=== PATIENT | male | born 1935 | race Caucasian/White ===

== ENCOUNTER 2016-09-22 12:43 | Inpatient (IN) | payer MEDICARE ==
[2016-09-22] MEDS ORDERED: ONDANSETRON 4 MG/2ML 2 ML VIAL ONE (13:07)
[2016-09-22] MEDS ORDERED: SODIUM CHLORIDE 0.9% 500 ML ONE (13:07)
[2016-09-22] MEDS ORDERED: PANTOPRAZOLE SODIUM 40 MG VIAL IV ONE (13:08)
[2016-09-22 13:18] LABS: ABSOLUTE NEUTROPHIL COUNT 7.7 K/mm3 (1.8-7.7); BASO % 0.3 % (0.2-1.0); EOS # 0.1 (0.0-0.5); EOS % 1.3 % (0.9-2.9); HEMATOCRIT 49.4 % (32.0-52.0); HEMOGLOBIN 16.5 gm/l (14.0-18.0); IMM NEUT% 0.3 % (0-1); LYMPH # 1.8 (1.0-4.8); LYMPH % 16.1 % (15-45); MEAN CELL VOLUME 98.6 fl (80.0-94.0); MEAN CORPUSCULAR HEMOGLOBIN 32.9 pg (27.0-31.0); MEAN CORPUSCULAR HGB CONC 33.4 g/dl (33.0-37.0); MEAN PLATELET VOLUME 10.4 fl (7.4-10.4); MONO # 1.4 (0.0-0.8); MONO % 12.8 % (4-12); NEUT % 69.2 % (43-75); PLATELET COUNT 206 K/mm3 (130-400); RED CELL DISTRIBUTION WIDTH 14.3 % (11.5-14.5)
[2016-09-22 13:23] LABS: INR 2.13; PROTHROMBIN TIME 23.3 SECONDS (9.3-11.4)
[2016-09-22 13:40] LABS: ALBUMIN 3.7 gm/dL (3.5-5.7); CALCIUM 9.9 mg/dL (8.6-10.3)
[2016-09-22 16:38] VITALS: BMI 33.4
[2016-09-22] MEDS ORDERED: BISACODYL 5 MG TABLET.EC PO PRN (17:03)
[2016-09-22] MEDS ORDERED: SODIUM CHLORIDE 0.9% 100 ML IV PRN (17:03)
[2016-09-22] MEDS ORDERED: BISACODYL 10 MG SUP PR PRN (17:03)
[2016-09-22] MEDS ORDERED: MENTHOL/CETYLPYRD 1 EACH LOZENGE PO PRN (17:03)
[2016-09-22] MEDS ORDERED: MAGNESIUM HYDROXIDE 30 ML UDCUP PO PRN (17:03)
[2016-09-22] MEDS ORDERED: BLISTEX LIPSTICK 1 EACH TP PRN (17:03)
[2016-09-22] MEDS ORDERED: PHYTONADIONE 10 MG/1 ML AMP IV ONE (17:03)
[2016-09-22] MEDS ORDERED: PUMP TUBING ONE (17:22)
[2016-09-22] MEDS: SODIUM CHLORIDE 0.9% 1,000 ML IV SCH (17:26)
[2016-09-22] MEDS: PANTOPRAZOLE SODIUM 40 MG VIAL IV SCH (17:26)
--- NOTE | 2016-09-22 19:12 | HP ---
NADIA PEÑA : 1935 DATE OF ADMISSION: September 22, 2016 CHIEF COMPLAINT: Hematemesis. HISTORY OF PRESENT ILLNESS: Patient is an 80-year-old male with dementia who is in close contact with his niece who is not his primary caregiver who is in contact with him daily. She has noted that her uncle was not answering his phone today, and she contacted [facility] where he resides. They checked on him and found vomit throughout his apartment and him very lethargic and not answering questions in his usual manner. EMS was called and he presented to the emergency department. In the emergency department, he was found to have melena but was otherwise hemodynamically stable, and he is being admitted to the hospital for further evaluation. Conversation with the niece who provided more detailed history as the patient said he passed out and cannot recall the last events. The niece said that she spoke with him Wednesday. He was his usual self, and he had called her and said he was vomiting and not to come over on Wednesday as they were going to watch the Super Bowl on Wednesday. The niece contacted him and he was slower answering questions. He had continued vomiting. She did not visit him and then yesterday she called to check on Nadia, and he was yet more slow to answer. He was falling asleep between questions, and he could not recall answers to questions. Then this morning he was not answering his phone, and representatives checked on him. He was found with hematemesis versus melena throughout the apartment. He has not eaten for days. REVIEW OF SYSTEMS: Per the patient. GENERAL: Denies fevers, chills. EENT: No throat pain or congestion. CARDIOVASCULAR: No chest pain or pressure. RESPIRATORY: No difficulty in breathing, cough. ABDOMEN: No abdominal pain. Nausea and vomiting. He says he has vomiting, no diarrhea. GENITOURINARY: No difficulty with urination. MUSCULOSKELETAL: No muscle aches or pains. NEUROLOGIC: No lightheadedness, no dizziness, no headaches. PAST MEDICAL HISTORY: Significant for: 1. Dementia. 2. Atrial fibrillation. 3. Chronic kidney disease stage 3. 4. Chronic systolic heart failure. He has an ejection fraction of 35%, an aortic aneurysm and mitral regurgitation. 5. Depression. 6. Essential hypertension. 7. Gout. 8. Hyperlipidemia. 9. Obstructive sleep apnea. 10. Prostate cancer. 11. Transient ischemic attack. 12. Vitamin D deficiency. MEDICATIONS: Include: 1. Allopurinol. 2. Coumadin. 3. Colace. 4. Lasix. 5. Lisinopril. 6. Lovaza. 7. Metoprolol. 8. Nitrostat. 9. Potassium chloride. 10. Pravastatin. 11. Venlafaxine. 12. Zetia. 13. Zyprexa. ALLERGIES TO MEDICATIONS: 1. ATENOLOL. 2. DESIPRAMINE. 3. DILTIAZEM. 4. DOXAZOSIN. 5. NIFEDIPINE. 6. PEANUTS. FAMILY MEDICAL HISTORY: Unknown. SOCIAL HISTORY: He lives alone with a niece who checks in on him and helps him with bills and his medications and shopping. No caffeine, alcohol use. He is a retired [employer]. PAST SURGICAL HISTORY: He has had: 1. Prostate cancer procedure. 2. Aortic and mitral valve replacements. 3. Angioplasty. 4. AICD placement. PHYSICAL EXAM: VITAL SIGNS: Temperature 99.3, heart rate is 70, blood pressure 154/85. He is saturating 97% on room air. GENERAL: He is alert and awake, slow to respond. Slight pallor. HEENT: Normocephalic, atraumatic. No tenderness to palpation. His mucous membranes are dry. His pupils are equal, round, and reactive. Extraocular muscles are intact. There is no scleral icterus or conjunctival injection or pallor. NECK: Supple. Trachea midline. CARDIOVASCULAR: There is a murmur present. It is regular, positive S1, S2. ABDOMEN: Soft, nontender, no rebound, no guarding. He has active bowel sounds. MUSCULOSKELETAL: Moving all extremities without difficulty. They are nontender. RESPIRATORY: Clear to auscultation bilaterally. No rhonchi or wheezing. LABORATORIES: White blood count of 11.2, hemoglobin 16.5, hematocrit 49.4, platelet count of 14.3. PT 23.3, INR 2.1. Sodium 142, potassium 3.6, chloride 99, carbon dioxide 33, BUN 43, creatinine of 1.9, glucose 86, total bilirubin of 1.5, troponin 0.09, BNP of 105. Hemoccult positive in the emergency room. ELECTROCARDIOGRAM: Electrocardiogram was obtained. The patient is paced with a ventricular rate of 70 beats per minute, QRS duration of 187 ms. ASSESSMENT: This is an 80-year-old male found to have melena in the emergency department on Coumadin. Per the niece, he takes his medications 30 to 50% of the time. PLAN: 1. Upper gastrointestinal bleed. Dr. Smith has been contacted. He said he will perform an esophagogastroduodenoscopy in the morning. Patient is currently hemodynamically stable. He has been provided with Protonix. We will continue with gentle IV fluid hydration to prevent a congestive heart failure exacerbation, provide vitamin K to help reverse the INR and hold his Coumadin overnight. 2. Metabolic encephalopathy complicated with dementia. Patient is not at his baseline per his niece. It is metabolic secondary to the upper gastrointestinal bleed and decreased oral intake for several days. 3. Troponin elevation. Slight elevation from patient's baseline secondary to on demand ischemia. Will monitor. 4. Acute kidney injury on top of chronic kidney disease. We will provide IV fluids and monitor closely. 5. Atrial fibrillation. Patient is paced. We will resume his anticoagulation following the procedure. 6. Chronic kidney disease stage 3 with acute kidney injury. We will monitor closely. 7. Chronic systolic congestive heart failure. Gentle fluid hydration and monitor closely. 8. Dementia. It will complicate care and determining when patient is at his mental baseline. 9. Depression. We will continue his medications. 10. Hypertension. We will continue his medications. 11. Hyperlipidemia. We will hold his medications until after the procedure. 12. Patient is a DO NOT RESUSCITATE/DO NOT INTUBATE. 13. We will have him work with physical therapy for his mobility. He currently is in a scooter due to chronic medical conditions, and we will work to get the patient back to his baseline versus a short rehabilitation stay. Cc: Rock Markham.
[2016-09-22] MEDS: METOPROLOL TARTRATE 25 MG TABLET PO SCH (20:49)
[2016-09-22] MEDS: ACETAMINOPHEN 325 MG TABLET PO PRN (20:49)
[2016-09-22] MEDS: POTASSIUM CHLORIDE 20 MEQ TAB.PRT.SR PO SCH (20:49)
[2016-09-22] MEDS: DOCUSATE SODIUM 100 MG CAPSULE PO SCH (20:49)
[2016-09-23] MEDS: SODIUM CHLORIDE 0.9% 1,000 ML IV SCH ×3 (01:32→20:16)
[2016-09-23 06:16] LABS: ABSOLUTE NEUTROPHIL COUNT 4.7 K/mm3 (1.8-7.7); BASO % 0.5 % (0.2-1.0); EOS # 0.3 (0.0-0.5); EOS % 3.9 % (0.9-2.9); HEMATOCRIT 45.2 % (32.0-52.0); IMM NEUT% 0.3 % (0-1); LYMPH # 1.6 (1.0-4.8); LYMPH % 20.6 % (15-45); MEAN CELL VOLUME 99.8 fl (80.0-94.0); MEAN CORPUSCULAR HEMOGLOBIN 33.1 pg (27.0-31.0); MEAN CORPUSCULAR HGB CONC 33.2 g/dl (33.0-37.0); MEAN PLATELET VOLUME 10.5 fl (7.4-10.4); MONO % 12.9 % (4-12); NEUT % 61.8 % (43-75); PLATELET COUNT 165 K/mm3 (130-400); RED CELL DISTRIBUTION WIDTH 14.2 % (11.5-14.5)
[2016-09-23 06:18] LABS: INR 1.36; PROTHROMBIN TIME 14.5 SECONDS (9.3-11.4)
[2016-09-23 06:20] LABS: CALCIUM 8.6 mg/dL (8.6-10.3)
[2016-09-23] MEDS ORDERED: LACTATED RINGERS 1,000 ML IV SCH (06:30)
--- NOTE | 2016-09-23 07:29 | PDOC43 ---
- Subjective Chief Complaint: hematemesis Sleeping, easily arousable, answer questions Subjective: Reports Pain Tolerable, Denies Shortness of Breath, Denies Cough, Denies Abdominal Pain, Denies Nausea, Denies Vomiting - Objective Vital Signs Temperature 98.2 F 09/23/16 03:54 Pulse Rate 70 09/23/16 03:54 Respiratory Rate 21 09/23/16 04:00 Blood Pressure 149/89 09/23/16 03:54 O2 Saturation by Pulse Oximetry 97 09/23/16 03:54 Oxygen Delivery Method Room Air Oxygen Flow Rate 0 Intake and Output 09/21/16 09/22/16 09/23/16 23:59 23:59 23:59 Intake Total 1270 1501 Output Total 225 Balance 1045 1501 General: Alert, Cooperative, Other (morbidly obese), No Acute Distress HEENT: Atraumatic, Other (mucus membranes dry), No Mucous membr. moist/pink Lungs: Clear to Auscultation Bilaterally, Normal Air Movement Cardiovascular: Regular Rate and Rhythm, Normal S1, Normal S2 Abdomen: Soft, Distention, No Rigid, No Tenderness, No Rebounding Extremities: Edema, No Cyanosis, No Tenderness Neurological: Normal Speech Psych/Mental Status: Normal Mood Laboratory 09/23/16 05:30 09/23/16 05:30 09/23/16 05:30 RBC 4.53 L MCV 99.8 H MCH 33.1 H PT 14.5 H BUN 43 H Estimated GFR 36 L Current Medications: Current meds reviewed in EMR. - Problems: Assessment/Plan (1) UGIB (upper gastrointestinal bleed) Status: Suspected Assessment/Plan: Suspected based upon history of vomiting and apartment with dark material. Could have been melanotic stool. Scheduled for EGD. Protonix. Patient has been hemodynamicaly stable (2) Metabolic encephalopathy Status: Acute Assessment/Plan: Improving. Complicated by dementia. Patient answers questions more rapidly than last night. 2nd to vomiting/melantic stool, decreased PO intake, slight increase in Crea from baseline (3) SHARAD (acute kidney injury) Status: Acute Assessment/Plan: Alight bump in Crea due to poor PO intake over past several days. IVF (4) CKD (chronic kidney disease) stage 3, GFR 30-59 ml/min Status: Chronic Assessment/Plan: slight bump in Crea, monitoring medication dosing (5) Dementia Qualifiers: Dementia type: Alzheimer's disease Alzheimer's disease onset: other onset Dementia behavioral disturbance: without behavioral disturbance Qualifier Code: (G30.8) Other Alzheimer's disease Status: Chronic Assessment/Plan: complicates medical care with history (6) Elevated troponin Status: Acute Assessment/Plan: 2nd to demand ischemia, no evidence of ACS (7) Afib Status: Chronic Assessment/Plan: Paced rhythm. INR reversed with Vitamin K. Will restart coumdain following procedure
[2016-09-23] MEDS ORDERED: WARFARIN PER PHARMACY 1 EACH DOSE PO SCH (09:00)
[2016-09-23] MEDS ORDERED: AMPICILLIN SODIUM 1 G in NS 0.9% (MINI-BAG PLUS) 50 ML IV ONE (10:00)
[2016-09-23] MEDS ORDERED: FENTANYL 100 MCG/2 ML VIAL ONE (12:13)
[2016-09-23] MEDS ORDERED: PROPOFOL 20 ML IV ONE (12:14)
[2016-09-23] MEDS: VENLAFAXINE HCL XR 150 MG CAPSULE.DR PO SCH (14:12)
[2016-09-23] MEDS: DOCUSATE SODIUM 100 MG CAPSULE PO SCH ×2 (14:12→20:37)
[2016-09-23] MEDS: POTASSIUM CHLORIDE 20 MEQ TAB.PRT.SR PO SCH ×2 (14:12→20:37)
[2016-09-23] MEDS: METOPROLOL TARTRATE 25 MG TABLET PO SCH ×2 (14:12→20:37)
[2016-09-23] MEDS: OLANZAPINE 5 MG TABLET PO SCH (14:13)
[2016-09-23] MEDS: FUROSEMIDE 40 MG TABLET PO SCH ×2 (14:13→20:38)
[2016-09-23] MEDS: SUCRALFATE 1 G/10 ML DOSE PO SCH ×2 (17:01→21:11)
[2016-09-23] MEDS: PANTOPRAZOLE SODIUM 40 MG VIAL IV SCH (17:01)
[2016-09-23 17:17] LABS: HELICOBACTER PYLORII DETECTION NEGATIVE (NEGATIVE)
[2016-09-23] MEDS: ACETAMINOPHEN 325 MG TABLET PO PRN (19:34)
[2016-09-24] MEDS: SODIUM CHLORIDE 0.9% 1,000 ML IV SCH ×4 (04:23→20:32)
[2016-09-24 05:53] LABS: HEMATOCRIT 40.7 % (32.0-52.0); HEMOGLOBIN 13.8 gm/l (14.0-18.0); MEAN CELL VOLUME 98.1 fl (80.0-94.0); MEAN CORPUSCULAR HEMOGLOBIN 33.3 pg (27.0-31.0); MEAN CORPUSCULAR HGB CONC 33.9 g/dl (33.0-37.0); RED CELL DISTRIBUTION WIDTH 13.8 % (11.5-14.5)
[2016-09-24 06:44] LABS: CALCIUM 8.3 mg/dL (8.6-10.3)
[2016-09-24] MEDS: SUCRALFATE 1 G/10 ML DOSE PO SCH ×4 (07:33→20:30)
[2016-09-24] MEDS: METOPROLOL TARTRATE 25 MG TABLET PO SCH ×2 (09:33→20:29)
[2016-09-24] MEDS: VENLAFAXINE HCL XR 150 MG CAPSULE.DR PO SCH (09:33)
[2016-09-24] MEDS: FUROSEMIDE 40 MG TABLET PO SCH ×2 (09:35→20:29)
[2016-09-24] MEDS: OLANZAPINE 5 MG TABLET PO SCH (09:35)
[2016-09-24] MEDS: DOCUSATE SODIUM 100 MG CAPSULE PO SCH ×2 (09:35→20:29)
[2016-09-24] MEDS: POTASSIUM CHLORIDE 20 MEQ TAB.PRT.SR PO SCH ×2 (09:35→20:30)
[2016-09-24] MEDS: ACETAMINOPHEN 325 MG TABLET PO PRN ×2 (10:18→16:03)
--- NOTE | 2016-09-24 10:44 | PDOC43 ---
- Subjective Chief Complaint: hematemesis RN notes pt short of breath, wheezing, pt generally not oriented. No further bleeding noted. Patient reports he is not feeling good, just "weak." Did eat breakfast. No pain complaints. - Objective Vital Signs Temperature 98 F 09/24/16 10:21 Pulse Rate 70 09/24/16 10:21 Respiratory Rate 20 09/24/16 10:21 Blood Pressure 166/80 09/24/16 10:21 O2 Saturation by Pulse Oximetry 96 09/24/16 10:21 Oxygen Delivery Method Room Air Oxygen Flow Rate 0 Vital Signs Last 12 Hours Temp Pulse Resp BP Pulse Ox 09/24/16 10:21 98 F 70 20 166/80 96 09/24/16 07:36 25 09/24/16 07:16 97.8 F 70 25 173/85 96 09/24/16 03:00 98.3 F 70 16 172/87 94 09/23/16 23:00 22 09/23/16 22:51 98 F 70 22 155/75 94 Intake and Output 09/22/16 09/23/16 09/24/16 23:59 23:59 23:59 Intake Total 1270 4148 2317 Output Total 225 1050 1425 Balance 1045 3098 892 Intake & Output 09/23/16 09/24/16 09/24/16 23:59 07:59 15:59 Intake Total 2647 2197 120 Output Total 625 600 825 Balance 2022 1597 -705 Weight 113.2 kg Intake: PO Intake 1100 800 120 IV Fluids 1147 1397 OR IV Fluid 400 Output: Void 625 600 825 Other: Number of Voids 1 General: Alert, Mild Distress (seems tired.) HEENT: Atraumatic Lungs: Other (decreased breath sounds bilat. Few wheezes bilat.) Cardiovascular: Regular Rate and Rhythm Abdomen: Soft, Normal Bowel Sounds, Mild Distention, No Tenderness Extremities: No Edema, No Tenderness Skin: Normal Color Wound: No Rash Neurological: Other (sl slow to answer.) Psych/Mental Status: Other (seems sl tired.) Laboratory 09/24/16 05:15 09/24/16 05:15 09/24/16 05:15 RBC 4.15 L MCV 98.1 H MCH 33.3 H BUN 29 H Estimated GFR 45 L Calcium 8.3 L Current Medications: Current meds reviewed in EMR. Active Medications Acetaminophen (Tylenol) 650 mg PO Q6H PRN PRN Reason: Pain or Temperature > 100.5 F Last Admin: 09/24/16 10:18 Dose: 650 mg Benzocaine/Menthol (Cepacol) 1 each PO PRN PRN PRN Reason: Sore Throat Bisacodyl (Dulcolax) 10 mg IN DAILY PRN PRN Reason: Constipation Bisacodyl (Dulcolax) 5 mg PO DAILY PRN PRN Reason: Constipation Docusate Sodium (Colace) 100 mg PO BID [facility] Last Admin: 09/24/16 09:35 Dose: 100 mg Furosemide (Lasix) 80 mg PO BID [facility] Last Admin: 09/24/16 09:35 Dose: 80 mg Sodium Chloride (Sodium Chloride 0.9%) 100 mls @ 25 mls/hr IV PRN PRN PRN Reason: Flush Sodium Chloride (Sodium Chloride 0.9%) 1,000 mls @ 125 mls/hr IV .Q8H [facility] Last Admin: 09/24/16 04:23 Dose: 125 mls/hr Magnesium Hydroxide (Milk Of Magnesia) 30 ml PO DAILY PRN PRN Reason: Constipation Metoprolol Tartrate (Lopressor) 25 mg PO BID [facility] Last Admin: 09/24/16 09:33 Dose: 25 mg Miscellaneous (Coumadin Per Pharmacy) 1 each PO PERPHARMACY [facility] Olanzapine (Zyprexa) 5 mg PO DAILY [facility] Last Admin: 09/24/16 09:35 Dose: 5 mg Pantoprazole Sodium (Protonix) 40 mg IV Q24H [facility] Last Admin: 09/23/16 17:01 Dose: 40 mg Petrolatum/Paraffin/Mineral Oil (Blistex) 1 each TP PRN PRN PRN Reason: Dry and/or chapped lips Potassium Chloride (K-Dur) 20 meq PO BID [facility] Last Admin: 09/24/16 09:35 Dose: 20 meq Sodium Chloride (Normal Saline 10ml Flush) 10 ml IV Q8HR [facility] Last Admin: 09/24/16 09:35 Dose: Not Given Sodium Chloride (Normal Saline 10ml Flush) 10 ml IV PRN PRN Sucralfate (Carafate Suspension) 1 g PO ACBEDTIME [facility] Last Admin: 09/24/16 07:33 Dose: 1 g Venlafaxine HCl (Effexor Xr) 150 mg PO DAILY [facility] Last Admin: 09/24/16 09:33 Dose: 150 mg - Problems: Assessment/Plan (1) UGIB (upper gastrointestinal bleed) Status: SuspectedAssessment/Plan: EGD 09/23/16 showed mild gastritis, duodenitis. Biopsies pending. Hb relatively stable: Laboratory Tests 09/22/16 09/23/16 09/24/16 13:00 05:30 05:15 Hgb 16.5 15.0 13.8 L Continue PPI (Protonix). Patient has been hemodynamically stable, consider Med/surg if imaging (eval wheezing, weakness) unrem. (2) SHARAD (acute kidney injury) Status: AcuteAssessment/Plan: Slight bump in Creatinine due to poor PO intake over past several days, now somewhat improved 1.9->1.5 hx c/w Stage III CKD. (3) Elevated troponin Status: AcuteAssessment/Plan: attributed to stressed of UGI bleed, no evidence of ACS; not felt to be significant. (4) Metabolic encephalopathy Status: AcuteAssessment/Plan: Improved from admit, but complicated by dementia. (5) CKD (chronic kidney disease) stage 3, GFR 30-59 ml/min Status: ChronicAssessment/Plan: Mildly above baseline on admit, now back to previous baseline. Cr 1.9->1.5 (6) Dementia Qualifiers: Dementia type: Alzheimer's disease Alzheimer's disease onset: other onset Dementia behavioral disturbance: without behavioral disturbance Qualifier Code: (G30.8) Other Alzheimer's disease Status: ChronicAssessment/ Plan: complicates medical care with history. (7) Afib Status: ChronicAssessment/Plan: Paced rhythm, controlled and stable at 70. INR reversed with Vitamin K. Will consider restart coumadin. Pt with hx HTN, CHF, (8) Wheezing Status: AcuteAssessment/Plan: Plan CXR. BNP not marycarmen elevated. Recheck troponin VTE Prophylaxis: Restarting coumadin, continue mechanical tx. Disposition: anticipate going to Med/Surg, poss this afternoon. Hope to return to [facility] in the next 1-2 days.
--- NOTE | 2016-09-24 11:37 | RAD ---
Exam: Portable chest COMPARISON: 07/11/2016, 09/19/2015 INDICATION: Wheezing and fatigue. FINDINGS: A semierect AP portable view of the chest demonstrates stable cardiomegaly. Postsurgical changes of median sternotomy, aortic valve replacement and left atrial appendage clip are again appreciated. Quadruple pacing leads/AICD are unchanged in location. There is no pulmonary edema, focal airspace disease or pleural effusion. IMPRESSION: No acute pulmonary process.
[2016-09-24 12:31] LABS: TROPONIN I 0.06 ng/ml (0.0-0.06)
[2016-09-24 12:34] LABS: CKMB ISOENZYME 3.4 ng/ml (0.6-6.3)
[2016-09-24] MEDS ORDERED: WARFARIN PER PHARMACY 1 EACH DOSE PO SCH (13:30)
[2016-09-24] MEDS ORDERED: WARFARIN SODIUM 7.5 MG TABLET PO ONE (14:00)
[2016-09-24] MEDS: PANTOPRAZOLE SODIUM 40 MG VIAL IV SCH (16:54)
[2016-09-24] MEDS ORDERED: SODIUM CHLORIDE 0.9% 1,000 ML IV SCH (21:00)
[2016-09-24] MEDS ORDERED: FUROSEMIDE 20 MG/2 ML VIAL IV ONE (23:35)
[2016-09-25] MEDS: ACETAMINOPHEN 325 MG TABLET PO PRN ×3 (01:04→20:17)
[2016-09-25 06:08] LABS: ABSOLUTE NEUTROPHIL COUNT 3.5 K/mm3 (1.8-7.7); BASO % 0.7 % (0.2-1.0); EOS # 0.3 (0.0-0.5); EOS % 5.7 % (0.9-2.9); HEMATOCRIT 40.7 % (32.0-52.0); HEMOGLOBIN 14.3 gm/l (14.0-18.0); IMM NEUT% 0.5 % (0-1); LYMPH # 1.5 (1.0-4.8); LYMPH % 24.6 % (15-45); MEAN CORPUSCULAR HEMOGLOBIN 33.7 pg (27.0-31.0); MEAN CORPUSCULAR HGB CONC 35.1 g/dl (33.0-37.0); MEAN PLATELET VOLUME 11.1 fl (7.4-10.4); MONO # 0.6 (0.0-0.8); MONO % 10.4 % (4-12); NEUT % 58.1 % (43-75); PLATELET COUNT 154 K/mm3 (130-400); RED CELL DISTRIBUTION WIDTH 13.6 % (11.5-14.5)
[2016-09-25 06:16] LABS: INR 1.02; PROTHROMBIN TIME 10.7 SECONDS (9.3-11.4)
[2016-09-25 06:22] LABS: ALB/GLOB RATIO 0.9 (>1.0); ALBUMIN 3.2 gm/dL (3.5-5.7); CALCIUM 8.5 mg/dL (8.6-10.3)
[2016-09-25] MEDS: SUCRALFATE 1 G/10 ML DOSE PO SCH ×4 (07:07→20:13)
--- NOTE | 2016-09-25 07:19 | PDOC43 ---
- Subjective Chief Complaint: hematemesis Patient had reported weakness yesterday; on discussion with daughter, he was not at his baseline. He reports not sleeping well, but is sleeping on my entry to room. He awakens normally, but tends to drift back to sleep. No chest pain, no dyspnea, no nausea , no current c/o, and reports feeling better than yesterday. - Objective Vital Signs Temperature 97 F 09/25/16 02:41 Pulse Rate 70 09/25/16 02:41 Respiratory Rate 24 09/25/16 03:00 Blood Pressure 172/104 09/25/16 02:41 O2 Saturation by Pulse Oximetry 97 09/25/16 02:41 Oxygen Delivery Method Room Air Oxygen Flow Rate 0 Vital Signs Last 12 Hours Temp Pulse Resp BP Pulse Ox 09/25/16 03:00 24 09/25/16 02:41 97 F 70 24 172/104 97 09/24/16 23:00 97.6 F 70 22 194/113 94 09/24/16 19:20 24 09/24/16 18:51 97 F 70 18 183/104 96 Intake and Output 09/23/16 09/24/16 09/25/16 23:59 23:59 23:59 Intake Total 4148 5662 600 Output Total 1050 2750 2511 Balance 3098 2912 -1911 General: Other (sleepy, but awakens normally, tends to drift off to sleep.) Lungs: Clear to Auscultation Bilaterally (fairly good air movement bilat.) Cardiovascular: Regular Rate and Rhythm Abdomen: Soft, Normal Bowel Sounds, Non-Distended Extremities: Other (SCDs), No Edema, No Tenderness Skin: Normal Color Neurological: Normal Speech Laboratory 09/25/16 05:30 09/25/16 05:30 09/25/16 09/24/16 09/24/16 05:30 11:40 05:15 RBC 4.24 L MCV 96.0 H MCH 33.7 H BUN 29 H Estimated GFR 49 L 45 L Calcium 8.5 L 8.3 L B-Natriuretic Peptide 293 H Albumin 3.2 L Albumin/Globulin Ratio 0.9 L Current Medications: Current meds reviewed in EMR. Active Medications Acetaminophen (Tylenol) 650 mg PO Q6H PRN PRN Reason: Pain or Temperature > 100.5 F Last Admin: 09/25/16 01:04 Dose: 650 mg Benzocaine/Menthol (Cepacol) 1 each PO PRN PRN PRN Reason: Sore Throat Bisacodyl (Dulcolax) 10 mg NE DAILY PRN PRN Reason: Constipation Bisacodyl (Dulcolax) 5 mg PO DAILY PRN PRN Reason: Constipation Docusate Sodium (Colace) 100 mg PO BID [facility] Last Admin: 09/24/16 20:29 Dose: 100 mg Furosemide (Lasix) 80 mg PO BID [facility] Last Admin: 09/24/16 20:29 Dose: 80 mg Sodium Chloride (Sodium Chloride 0.9%) 100 mls @ 25 mls/hr IV PRN PRN PRN Reason: Flush Magnesium Hydroxide (Milk Of Magnesia) 30 ml PO DAILY PRN PRN Reason: Constipation Metoprolol Tartrate (Lopressor) 25 mg PO BID [facility] Last Admin: 09/24/16 20:29 Dose: 25 mg Miscellaneous (Coumadin Per Pharmacy) 1 each PO PERPHARMACY [facility] Olanzapine (Zyprexa) 5 mg PO DAILY [facility] Last Admin: 09/24/16 09:35 Dose: 5 mg Pantoprazole Sodium (Protonix) 40 mg IV Q24H [facility] Last Admin: 09/24/16 16:54 Dose: 40 mg Petrolatum/Paraffin/Mineral Oil (Blistex) 1 each TP PRN PRN PRN Reason: Dry and/or chapped lips Potassium Chloride (K-Dur) 20 meq PO BID [facility] Last Admin: 09/24/16 20:30 Dose: 20 meq Sodium Chloride (Normal Saline 10ml Flush) 10 ml IV Q8HR [facility] Last Admin: 09/25/16 03:12 Dose: Not Given Sodium Chloride (Normal Saline 10ml Flush) 10 ml IV PRN PRN Last Admin: 09/24/16 23:43 Dose: 10 ml Sucralfate (Carafate Suspension) 1 g PO ACBEDTIME [facility] Last Admin: 09/24/16 20:30 Dose: 1 g Venlafaxine HCl (Effexor Xr) 150 mg PO DAILY [facility] Last Admin: 09/24/16 09:33 Dose: 150 mg - Problems: Assessment/Plan (1) UGIB (upper gastrointestinal bleed) Status: SuspectedAssessment/Plan: EGD 09/23/16 showed mild gastritis, duodenitis. Biopsies pending. Hb relatively stable, sl up to 14.3 this am. Continue PPI (Protonix). Patient has been hemodynamically stable, just hypertensive (2) SHARAD (acute kidney injury) Status: AcuteAssessment/Plan: Slight bump in Creatinine due to poor PO intake over past several days, now somewhat improved 1.9->1.4 hx c/w Stage III CKD. (3) Elevated troponin Status: AcuteAssessment/Plan: attributed to stressed of UGI bleed, no evidence of ACS; not felt to be significant. 0.09->0.06, normal CPK, CKMB. BNP mildly elevated (up slightly from 2 days ago, but not especially up over the last 5 years) (4) Metabolic encephalopathy Status: AcuteAssessment/Plan: Improved from admit, but complicated by dementia. Sleepiness - will hold Zyprexa for now. (5) CKD (chronic kidney disease) stage 3, GFR 30-59 ml/min Status: ChronicAssessment/Plan: Mildly above baseline on admit, now back to previous baseline. Cr 1.9->1.5 (6) Dementia Qualifiers: Dementia type: Alzheimer's disease Alzheimer's disease onset: other onset Dementia behavioral disturbance: without behavioral disturbance Qualifier Code: (G30.8) Other Alzheimer's disease Status: ChronicAssessment/ Plan: complicates medical care with history. (7) Afib Qualifiers: Atrial fibrillation type: chronic Qualifier Code: (I48.2) Chronic atrial fibrillation Status: ChronicAssessment/Plan: Paced rhythm, controlled and stable at 70. INR reversed with Vitamin K. Will consider restart coumadin. Pt with hx HTN, CHF, (8) Wheezing Status: ResolvedAssessment/Plan: CXR was unremarkable; wheezing appears better this am. Recheck troponin was ok. (9) Hypertension Qualifiers: Hypertension type: essential hypertension Qualifier Code: (I10) Essential (primary) hypertension Status: AcuteAssessment/Plan: BP edging up last 24h. Did get extra lasix yesterday pm. Plan norvasc 2.5 mg this am. VTE Prophylaxis: Restarting coumadin, continue mechanical tx. Disposition: anticipate going to Med/Surg, Hope to return to [facility] in the next 1-2 days. Appreciate PT/OT input.
[2016-09-25] MEDS: POTASSIUM CHLORIDE 20 MEQ TAB.PRT.SR PO SCH ×2 (09:07→20:13)
[2016-09-25] MEDS: VENLAFAXINE HCL XR 150 MG CAPSULE.DR PO SCH (09:07)
[2016-09-25] MEDS: DOCUSATE SODIUM 100 MG CAPSULE PO SCH ×2 (09:07→20:12)
[2016-09-25] MEDS: FUROSEMIDE 40 MG TABLET PO SCH ×2 (09:08→20:13)
[2016-09-25] MEDS: AMLODIPINE BESYLATE 5 MG TABLET PO SCH (09:08)
[2016-09-25] MEDS: METOPROLOL TARTRATE 25 MG TABLET PO SCH ×2 (09:08→20:13)
--- NOTE | 2016-09-25 10:31 | SURGPATH ---
[facility] [address] [place] [id number] Patient Name: NADIA PEÑA MR#: [id number] : 1935 Gender: M Specimen #: [id number] Collected: 09/22/2016 Received: 09/24/2016 Reported: 09/25/2016 Submitting Phys: LAZARO KELLER Copy To Phys: STEVEN BOWSER JAMEY L [facility] Clinical History / Pre-Operative Diagnosis: GI BLEED Specimen Source / Surgical Procedure Performed: ANTRAL BIOPSY Interpretation: GASTRIC ANTRUM, BIOPSY: - NO PATHOLOGIC DIAGNOSIS Electronically Signed Out Mendez Crespo M.D. Gross Description: The specimen is received in a formalin filled container labeled with the patient's name and "antral biopsy". A single holley biopsy is 0.4 cm. Totally embedded in one cassette. [address] Microscopic Description: Levels reveal gastric mucosa with an unremarkable architecture and few chronic inflammatory cells in the lamina propria. Ulceration, acute inflammation, intestinal metaplasia, Helicobacter organisms, dysplasia and malignancy are not present. 1: [id number] K29.01
[2016-09-25] MEDS ORDERED: WARFARIN SODIUM 5 MG TABLET PO ONE (16:00)
[2016-09-25] MEDS: PANTOPRAZOLE SODIUM 40 MG VIAL IV SCH (16:16)
[2016-09-26 05:40] LABS: ABSOLUTE NEUTROPHIL COUNT 3.7 K/mm3 (1.8-7.7); BASO % 0.5 % (0.2-1.0); EOS # 0.4 (0.0-0.5); EOS % 5.8 % (0.9-2.9); HEMATOCRIT 45.3 % (32.0-52.0); HEMOGLOBIN 15.4 gm/l (14.0-18.0); IMM NEUT # 0.1 K/mm3 (0-0.2); LYMPH # 1.3 (1.0-4.8); LYMPH % 21.4 % (15-45); MEAN CELL VOLUME 96.4 fl (80.0-94.0); MEAN CORPUSCULAR HEMOGLOBIN 32.8 pg (27.0-31.0); MEAN PLATELET VOLUME 9.9 fl (7.4-10.4); MONO # 0.8 (0.0-0.8); MONO % 12.3 % (4-12); PLATELET COUNT 185 K/mm3 (130-400); RED CELL DISTRIBUTION WIDTH 13.6 % (11.5-14.5)
[2016-09-26 05:50] LABS: INR 1.09; PROTHROMBIN TIME 11.6 SECONDS (9.3-11.4)
[2016-09-26 05:58] LABS: ALB/GLOB RATIO 0.9 (>1.0); ALBUMIN 3.4 gm/dL (3.5-5.7); CALCIUM 8.9 mg/dL (8.6-10.3)
[2016-09-26] MEDS ORDERED: POTASSIUM CHLORIDE 20 MEQ TAB.PRT.SR PO SCH (07:34)
[2016-09-26] MEDS: FUROSEMIDE 40 MG TABLET PO SCH (09:41)
[2016-09-26] MEDS: METOPROLOL TARTRATE 25 MG TABLET PO SCH (09:41)
[2016-09-26] MEDS: SUCRALFATE 1 G/10 ML DOSE PO SCH (09:41)
[2016-09-26] MEDS: DOCUSATE SODIUM 100 MG CAPSULE PO SCH (09:41)
[2016-09-26] MEDS: VENLAFAXINE HCL XR 150 MG CAPSULE.DR PO SCH (09:42)
[2016-09-26] MEDS: AMLODIPINE BESYLATE 5 MG TABLET PO SCH (09:42)
[2016-09-26 09:56] VITALS: BP 174/100
--- NOTE | 2016-09-26 10:37 | PDOC43 ---
- Subjective Chief Complaint: hematemesis Patient reported to be more alert today, conversant, seeming closer to baseline. Seems to know where he is, but still demented, doing well. Anticipated going to [facility] today. Seems to do ok with therapy. Zyprexa was held yesterday. Patient reports feeling pretty good. "Needs a shave." No c/o, ate breakfast well today. Niece reports pt much more alert, awake. - Objective Vital Signs Temperature 97.9 F 09/26/16 08:00 Pulse Rate 72 09/26/16 08:00 Respiratory Rate 20 09/26/16 08:00 Blood Pressure 174/100 09/26/16 08:00 O2 Saturation by Pulse Oximetry 96 09/26/16 08:00 Oxygen Delivery Method Room Air Oxygen Flow Rate 0 Vital Signs Last 12 Hours Temp Pulse Resp BP Pulse Ox 09/26/16 08:00 97.9 F 72 20 174/100 96 09/26/16 00:52 18 09/26/16 00:47 97.1 F 70 18 173/95 93 Intake and Output 09/24/16 09/25/16 09/26/16 23:59 23:59 23:59 Intake Total 5662 1870 300 Output Total 2750 8551 850 Balance 2354 -7463 -999 General: Alert, Cooperative, No Acute Distress HEENT: Atraumatic Lungs: Clear to Auscultation Bilaterally Cardiovascular: Regular Rate and Rhythm Abdomen: Soft, Normal Bowel Sounds, Non-Distended, No Tenderness, No Rebounding , No Involuntary Guarding Extremities: No Edema, No Tenderness Skin: Normal Color Neurological: Normal Speech, Other (demented) Psych/Mental Status: Normal Affect, Normal Mood Laboratory 09/26/16 05:20 09/26/16 05:20 09/26/16 05:20 MCV 96.4 H MCH 32.8 H PT 11.6 H Estimated GFR 53 L Albumin 3.4 L Globulin 3.7 H Albumin/Globulin Ratio 0.9 L Current Medications: Current meds reviewed in EMR. Active Medications Acetaminophen (Tylenol) 650 mg PO Q6H PRN PRN Reason: Pain or Temperature > 100.5 F Last Admin: 09/25/16 20:17 Dose: 650 mg Amlodipine Besylate ([facility]) [facility] [place] Last Admin: 09/26/16 09:42 Dose: 2.5 mg Benzocaine/Menthol (Cepacol) 1 each PO PRN PRN PRN Reason: Sore Throat Bisacodyl (Dulcolax) 10 mg AR DAILY PRN PRN Reason: Constipation Bisacodyl (Dulcolax) 5 mg PO DAILY PRN PRN Reason: Constipation Docusate Sodium (Colace) 100 mg PO BID [facility] Last Admin: 09/26/16 09:41 Dose: 100 mg Furosemide (Lasix) 80 mg PO BID [facility] Last Admin: 09/26/16 09:41 Dose: 80 mg Sodium Chloride (Sodium Chloride 0.9%) 100 mls @ 25 mls/hr IV PRN PRN PRN Reason: Flush Magnesium Hydroxide (Milk Of Magnesia) 30 ml PO DAILY PRN PRN Reason: Constipation Last Admin: 09/25/16 09:13 Dose: 30 ml Metoprolol Tartrate (Lopressor) 25 mg PO BID [facility] Last Admin: 09/26/16 09:41 Dose: 25 mg Miscellaneous (Coumadin Per Pharmacy) 1 each PO PERPHARMACY [facility] Olanzapine (Zyprexa) 5 mg PO DAILY [facility] Last Admin: 09/24/16 09:35 Dose: 5 mg Pantoprazole Sodium (Protonix) 40 mg IV Q24H [facility] Last Admin: 09/25/16 16:16 Dose: 40 mg Petrolatum/Paraffin/Mineral Oil (Blistex) 1 each TP PRN PRN PRN Reason: Dry and/or chapped lips Potassium Chloride (K-Dur) 40 meq PO BID [facility] Last Admin: 09/26/16 09:41 Dose: 40 meq Sodium Chloride (Normal Saline 10ml Flush) 10 ml IV Q8HR [facility] Last Admin: 09/26/16 09:41 Dose: 10 ml Sodium Chloride (Normal Saline 10ml Flush) 10 ml IV PRN PRN Last Admin: 09/25/16 20:11 Dose: 10 ml Sucralfate (Carafate Suspension) 1 g PO ACBEDTIME [facility] Last Admin: 09/26/16 09:41 Dose: 1 g Venlafaxine HCl (Effexor Xr) 150 mg PO DAILY [facility] Last Admin: 09/26/16 09:42 Dose: 150 mg - Problems: Assessment/Plan (1) UGIB (upper gastrointestinal bleed) Status: SuspectedAssessment/Plan: EGD 09/23/16 showed mild gastritis, duodenitis. Biopsies pending. Hb relatively stable, sl up to 15.4 this am. Continue PPI (Protonix). Patient has been hemodynamically stable, is hypertensive . (2) SHARAD (acute kidney injury) Status: AcuteAssessment/Plan: Slight bump in Creatinine due to poor PO intake over past several days, now somewhat improved 1.9->1.3 hx c/w Stage III CKD. (3) Elevated troponin Status: AcuteAssessment/Plan: attributed to stressed of UGI bleed, no evidence of ACS; not felt to be significant. 0.09->0.06, normal CPK, CKMB. BNP mildly elevated (up slightly from 2 days ago, but not especially up over the last 5 years) (4) Metabolic encephalopathy Status: AcuteAssessment/Plan: Improved from admit, but complicated by dementia. Sleepiness today improved; did sleep well, now awake - holding Zyprexa (5) CKD (chronic kidney disease) stage 3, GFR 30-59 ml/min Status: ChronicAssessment/Plan: Mildly above baseline on admit, now back to previous baseline. Cr 1.9->1.3 (6) Dementia Qualifiers: Dementia type: Alzheimer's disease Alzheimer's disease onset: other onset Dementia behavioral disturbance: without behavioral disturbance Qualifier Code: (G30.8) Other Alzheimer's disease Status: ChronicAssessment/ Plan: complicates medical care with history. Doing well this am. (7) Afib Qualifiers: Atrial fibrillation type: chronic Qualifier Code: (I48.2) Chronic atrial fibrillation Status: ChronicAssessment/Plan: Paced rhythm, controlled and stable at 70. INR reversed with Vitamin K. Will consider restart coumadin. Pt with hx HTN, CHF, (8) Wheezing Status: ResolvedAssessment/Plan: CXR was unremarkable; wheezing appears resolved; did get Lasix Recheck troponin was ok. (9) Hypertension Qualifiers: Hypertension type: essential hypertension Qualifier Code: (I10) Essential (primary) hypertension Status: AcuteAssessment/Plan: BP sl improved this am, still above goal. Added norvasc 2.5 mg, will continue VTE Prophylaxis: Restarting coumadin, continue mechanical tx. Disposition: anticipate going to SNF today; review with CM, and discussed with CM. Appreciate PT/OT input.
--- NOTE | 2016-09-26 12:05 | DS ---
NADIA PEÑA [id number] DISCHARGE DIAGNOSES: Are: 1. Hematemesis. Suspected upper gastrointestinal bleed now resolved. 2. Acute on chronic kidney injury now resolved with creatinine 1.3 at discharge. 3. Minimally elevated not felt to be significant. 4. Encephalopathy, suspect related to illness, acute kidney injury and possible effect from Zyprexa medication. 5. Dementia, Alzheimer's type. 6. Atrial fibrillation, paced and restarting Coumadin. 7. Hypertension. CODE STATUS: DO NOT RESUSCITATE/DO NOT INTUBATE. REASON FOR ADMISSION: The patient is an 80-year-old male who has had dementia who had been less responsive and not answering a phone after a period of not taking his medicines on a regular basis. She contacted [facility] where he resides. They checked on him and found vomit throughout his apartment and found him lethargic and not answering questions. EMS was called and in the emergency department he was found to have melena, otherwise hemodynamically stable. He was referred to the hospitalist service for further evaluation. His lab on admission showed a white count of 11.2, hemoglobin 16.5, MCV of 98.6, platelets 206. INR 2.13. Chemistry profile showed sodium 142, potassium 3.6, BUN 43, creatinine 1.9, BNP 105, troponin 0.09. He was referred to the hospitalist service and placed in the intermediate care unit on telemetry. His hemoglobin remained relatively stable with a drop to a afia of 13.8 on September 24, 2016. He underwent endoscopy, esophagogastroduodenoscopy with biopsy with anesthesia which pathology showed no pathologic diagnosis of gastric antrum. No masses or significant ulcerations were noted. The patient was placed on sucralfate and Protonix, and remained stable with a hemoglobin improving to 15.4 by September 26, 2016. His INR trended downward because of vitamin K administration and reached a low of 1.02 on September 25, 2016. His chemistry profile showed a good improvement in renal status with a BUN of 19 and a creatinine 1.3 by September 26, 2016. He did have some hypokalemia attributed to the Lasix for which he received additional potassium. His BNP trended upward somewhat from 105 on admission to 293 and at one point some wheezing was noted, but this resolved. He continued to have some degree of sedation and so his Zyprexa was held, and he appeared to have good response to this with good improvement in alertness and function. On September 26, 2016, he is anticipated to be discharged to [facility] for further rehabilitation care. DISCHARGE MEDICATIONS: Are anticipated to be: 1. Allopurinol 150 mg daily. 2. Amlodipine 2.5 mg daily. 3. Docusate 100 mg orally twice daily. 4. Zetia 10 mg orally daily. 5. Lasix 80 mg orally twice daily. 6. Metoprolol 25 mg orally twice daily. 7. Lovaza 2 gr orally twice daily. 8. Omeprazole 20 mg orally daily. 9. Potassium chloride 40 mEq orally twice daily. 10. Pravastatin 40 mg orally daily. 11. Sucralfate 1 gr orally at meals and at bedtime. 12. Venlafaxine 150 mg orally daily. 13. Warfarin 5 mg Wednesday, Wednesday, Wednesday, Wednesday, Wednesday and Wednesday and 7.5 mg on . He is to have his next INR checked on September 28, 2016. FOLLOWUP: He is to follow up with Dr. Virkam Hernandez. DIET: Cardiac diet as tolerated. ACTIVITY: Will be as tolerated. Cc: Vikram Hernandez M.D.
== END 2016-09-26 12:50 | DRG 377 ==
LOC: ED 12:43 → ICU 14:39
PROVIDERS: ADMIT Family Medicine; ATTEND Family Medicine
PROC: 0DB78ZX Excision of Stomach, Pylorus, Via Natural or Artificial Opening Endoscopic, Diagnostic (ICD-10-PCS; principal; 2016-09-23)
DX: K29.81 Duodenitis with bleeding (principal); G93.41 Metabolic encephalopathy; I13.0 Hypertensive heart and chronic kidney disease with heart failure and stage 1 through stage 4 chronic kidney disease, or unspecified chronic kidney disease; I50.22 Chronic systolic (congestive) heart failure; N17.9 Acute kidney failure, unspecified; K92.2 Gastrointestinal hemorrhage, unspecified; I48.91 Unspecified atrial fibrillation; N18.3 Chronic kidney disease, stage 3 (moderate); F32.9 Major depressive disorder, single episode, unspecified; M10.9 Gout, unspecified; E78.5 Hyperlipidemia, unspecified; G47.33 Obstructive sleep apnea (adult) (pediatric); Z79.01 Long term (current) use of anticoagulants; Z91.14 Patient's other noncompliance with medication regimen; Z66 Do not resuscitate; G30.9 Alzheimer's disease, unspecified; F02.80 Dementia in other diseases classified elsewhere, unspecified severity, without behavioral disturbance, psychotic disturbance, mood disturbance, and anxiety; D64.9 Anemia, unspecified

== ENCOUNTER 2016-10-31 10:38 | Inpatient (IN) | payer MEDICARE ==
[2016-10-31 11:26] LABS: TROPONIN I 0.03 ng/ml (0.0-0.06)
[2016-10-31] MEDS ORDERED: FUROSEMIDE 40 MG/4 ML VIAL ONE (11:27)
[2016-10-31 11:30] LABS: CKMB ISOENZYME 2.6 ng/ml (0.6-6.3)
[2016-10-31 11:41] LABS: ALB/GLOB RATIO 0.7 (>1.0); ALBUMIN 2.9 gm/dL (3.5-5.7); CALCIUM 8.9 mg/dL (8.6-10.3)
[2016-10-31 11:56] LABS: ABSOLUTE NEUTROPHIL COUNT 9.4 K/mm3 (1.8-7.7); BASO % 0.2 % (0.2-1.0); EOS # 0.1 (0.0-0.5); EOS % 0.4 % (0.9-2.9); HEMATOCRIT 45.4 % (32.0-52.0); HEMOGLOBIN 14.8 gm/l (14.0-18.0); IMM NEUT% 0.3 % (0-1); LYMPH # 1.3 (1.0-4.8); LYMPH % 10.9 % (15-45); MEAN CELL VOLUME 97.6 fl (80.0-94.0); MEAN CORPUSCULAR HEMOGLOBIN 31.8 pg (27.0-31.0); MEAN CORPUSCULAR HGB CONC 32.6 g/dl (33.0-37.0); MEAN PLATELET VOLUME 10.2 fl (7.4-10.4); MONO # 1.4 (0.0-0.8); MONO % 11.5 % (4-12); NEUT % 76.7 % (43-75); PLATELET COUNT 359 K/mm3 (130-400); RED CELL DISTRIBUTION WIDTH 13.5 % (11.5-14.5)
--- NOTE | 2016-10-31 12:01 | RAD ---
Exam: Portable chest COMPARISON: 09/24/2016, 07/11/2016 INDICATION: Cough and shortness of breath. Findings: A semierect AP portable view of the chest again demonstrates postsurgical changes of median sternotomy and valve replacement. Left atrial appendage clip is again noted. Quadruple lead pacer/AICD remains. Lung volumes are low, preventing evaluation lung bases and portions of the cardiac silhouette. There is new right basilar opacity, with somewhat angulated margins. Lung martinez are otherwise clear and symmetric. No pleural effusion. Degenerative changes are noted about the left shoulder. IMPRESSION: New right basilar opacity, with atelectasis favored over pneumonia given it's shape.
[2016-10-31 12:03] LABS: SPECIFIC GRAVITY 1.015 (1.001-1.030); URINE APPEARANCE CLEAR; URINE BILIRUBIN NEGATIVE (NEGATIVE); URINE BLOOD TRACE (NEGATIVE); URINE COLOR DARK YELLOW; URINE GLUCOSE (UA) NEGATIVE (NEGATIVE); URINE LEUKOCYTE ESTERASE NEGATIVE (NEGATIVE); URINE NITRITE NEGATIVE (NEGATIVE); URINE PROTEIN TRACE (NEGATIVE); URINE UROBILINOGEN 1 mg/dL (0-1 mg/dl)
[2016-10-31 12:24] LABS: URINE BACTERIA 1+; URINE EPITHELIAL CELLS 0-1 /hpf; URINE RBC 0 /hpf; URINE WBC NEG /hpf
[2016-10-31 12:29] LABS: PROTHROMBIN TIME 127.3 SECONDS (9.3-11.4)
[2016-10-31 12:31] LABS: INR > 10.00
[2016-10-31] MEDS ORDERED: CEFTRIAXONE 1 GRAM DUPLEX 50 ML IV ONE (12:56)
[2016-10-31] MEDS ORDERED: PHYTONADIONE ADULT PO ONE ×2 (13:00)
[2016-10-31] MEDS ORDERED: SUCROSE PO ONE ×2 (13:00)
[2016-10-31] MEDS ORDERED: ACETAMINOPHEN 325 MG TABLET ONE (13:40)
[2016-10-31] MEDS ORDERED: MAGNESIUM HYDROXIDE 30 ML UDCUP PO PRN (14:16)
[2016-10-31] MEDS ORDERED: BLISTEX LIPSTICK 1 EACH TP PRN (14:16)
[2016-10-31] MEDS ORDERED: BISACODYL 10 MG SUP PR PRN (14:16)
[2016-10-31] MEDS ORDERED: BISACODYL 5 MG TABLET.EC PO PRN (14:16)
[2016-10-31] MEDS ORDERED: ALBUTEROL NEB 2.5 MG/3 ML VIAL.NEB NEB PRN (14:16)
[2016-10-31] MEDS ORDERED: SODIUM CHLORIDE 0.9% 100 ML IV PRN (14:16)
[2016-10-31] MEDS ORDERED: MENTHOL/CETYLPYRD 1 EACH LOZENGE PO PRN (14:16)
[2016-10-31] MEDS ORDERED: PUMP TUBING ONE (15:06)
[2016-10-31] MEDS: AZITHROMYCIN 500 MG in SODIUM CHLORIDE 0.9% 250 ML IV SCH (16:00)
[2016-10-31 18:01] VITALS: BMI 32.3
[2016-10-31] MEDS: FUROSEMIDE 40 MG TABLET PO SCH (19:22)
--- NOTE | 2016-10-31 20:07 | HP ---
NADIA PEÑA [id number] CHIEF COMPLAINT: Dyspnea. HISTORY OF PRESENT ILLNESS: The patient is an 81-year-old male with moderate to severe senile dementia, as well as chronic systolic heart failure, brought to the [facility] Emergency Department by ambulance at the recommendations of his caregivers at [facility]. Workup in the emergency department showed evidence of a right basilar pneumonia. He had borderline hypoxia, with oxygen saturations as low as 90% on room air as measured by the paramedics. There were also some concerns regarding possible congestive heart failure. The patient is a very poor historian. He reports a six month history of fatigue and cough for the past week, and is unable to give much more detail. He has not had any increased lower extremity edema. He denies any chest pain. REVIEW OF SYSTEMS: Significant for low-grade fever in the emergency department. No upper respiratory symptoms. No chest pains or palpitations. No orthopnea or lower extremity edema. No nausea or vomiting. No diarrhea or constipation. No abdominal pain. No headaches, fainting, blackouts or seizures. No urinary complaints. No history of any falls. Review of systems is otherwise negative. PAST MEDICAL HISTORY: Significant for: 1. A hospitalization last month for hematemesis. He underwent an upper endoscopy, showing some mild gastritis. He remains anticoagulated on Coumadin despite that episode. 2. Following his hospitalization in September he went to rehab at [facility] and then from there went to [facility]. His niece reports he has had a significant decline in his memory in the last six months. It is clear he is no longer able to manage his own medications. He tends to be very sedentary. He does not self-motivate to ambulate or transfer without a lot of encouragement. He has a walker and a motorized scooter. He has been getting outpatient physical therapy. 3. He has a history of chronic systolic congestive heart failure, followed by [facility]. His last ejection fraction was 30% by echocardiography in February of 2015. 4. 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 5. He has had nonischemic cardiomyopathy. 6. He has had a history of dyslipidemia and chronic essential hypertension. 7. He has had gout. 8. He has had a history of obstructive sleep apnea, but his niece reports he has been off of CPAP since July. His mask does not fit and it may be broken, and he needs a new water chamber. She thought the patient would arrange to get this on his own, but he has not done anything and does not seem capable of doing anything to get the new equipment. She reports that he had a sleep study through Dr. Trisha Vergara with [facility] and his equipment is from [employer]. 9. He has had a history of chronic Stage-3 kidney disease. 10. He has had some mild glucose intolerance. 11. He has had chronic atrial fibrillation, anticoagulated on Coumadin long-term. 12. He has a remote history of prostate cancer. 13. He has had TIAs in the past. PAST SURGICAL HISTORY: Significant for: 1. Surgery for prostate cancer. His prostatectomy was in 1995. 2. He had a screening colonoscopy in October of 2006. 3. He has had a hernia repair, details are not available. 4. He had a cardiac catheterization in 2009, showing global hypokinesis and nonocclusive coronary artery disease. 5. He had reconstruction of his ascending aorta in March of 2010, along with tissue aortic valve replacement and a tissue mitral valve replacement. He had a MAZE procedure at the same time in March of 2010. 6. He had an AV deisi ablation in June of 2010 and had an electronic ventricular pacemaker placed at the same time. He had the leads replaced and generator replaced in October of 2015. 7. He had a biventricular ICD device placed in August of 2010. ALLERGIES: His record in his primary care provider's office indicates allergy or intolerance to: 1. Atenolol. 2. Desipramine. 3. Diltiazem. 4. Doxazosin. 5. Nifedipine. 6. Peanuts. CURRENT MEDICATIONS: Include: 1. Coumadin 5 mg by mouth on Wednesday, Wednesday, Wednesday, Wednesday and Wednesday and 7.5 mg by mouth on Wednesday and . 2. Effexor ER 150 mg by mouth daily. 3. Carafate suspension 1 gram before meals and at bedtime. 4. Pravachol 40 mg at bedtime. 5. Potassium chloride 40 mEq by mouth twice a day. 6. Prilosec 20 mg by mouth daily. 7. Lovaza 1 gram capsules, two capsules twice daily. 8. Lopressor 50 mg twice daily. 9. Cozaar 25 mg daily. 10. Lasix 80 mg twice daily. 11. Zetia 10 mg daily. 12. Colace 100 mg twice a day. 13. Amlodipine 2.5 mg daily. 14. Allopurinol 150 mg daily. 15. Tylenol 650 mg every four hours as needed for pain or fever. FAMILY HISTORY: Significant for a mother who of complications of kidney disease and a father who of a myocardial infarction in his 80's. SOCIAL HISTORY: He was living alone until this year when he moved into the [facility] area about a week ago. He has a niece who is the main family member involved in his life and is his primary spokesperson, Cate Jason. There is no history of alcohol, drug use or tobacco use. 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 He has no children. PHYSICAL EXAMINATION: VITAL SIGNS: Temperature 97.8. Pulse 70. Blood pressure 135/94. Respirations 20. Oxygen saturations are 94% on 2 liters by nasal cannula. GENERAL: This is an obese elderly male in no acute distress. HEENT: Shows moist pink oral mucosa. NECK: Supple, without lymphadenopathy, thyromegaly or jugular venous distention. LUNGS: His lung sounds are diminished in the bases, with some rhonchi on the right. CARDIOVASCULAR: Reveals a regular rate and rhythm, without a murmur. ABDOMEN: Obese, soft, nontender and nondistended, with positive bowel sounds. EXTREMITIES: Show no peripheral edema. SKIN: Warm, dry and intact. LABORATORY STUDIES: CBC is elevated at 12.2, hemoglobin is 14.8 and platelet count is 359,000. Differential shows increased neutrophils. INR is markedly elevated at greater than 10. Lactate is 1.1. Chemistry profile shows a sodium of 138, potassium 3.6, carbon dioxide 24, BUN of 31, creatinine 1.2 and glucose 130. Total bilirubin is 1.4. AST is 45 and ALT is 47. CPK is 29, with a CK-MB of 2.6. Troponin is 0.03. B-type natriuretic peptide is slightly elevated at 407. Urinalysis is unremarkable. EKG: A 12-lead EKG shows a paced rhythm. No ischemic change. IMAGING: A chest x-ray shows a right basilar infiltrate. ASSESSMENT: 1. Patient has a community-acquired bacterial pneumonia. He will be treated with Rocephin and Zithromax. 2. He has generalized weakness, which has been chronic and multifactorial. 3. He has chronic systolic congestive heart failure and chronic atrial fibrillation. He is anticoagulated on Coumadin and his INR is critical, greater than 10. 4. He has obstructive sleep apnea and is usually on CPAP, but has been unable to get his equipment replaced. 5. He has chronic Stage-3 kidney disease which is stable, with a baseline creatinine around 1.4, currently at 1.2. 6. He has chronic essential hypertension, which is stable. 7. He has senile dementia, which is progressing fairly rapidly. PLAN: He is admitted to the Med-Surg unit with antibiotic treatment consisting of Rocephin and Zithromax. He got a dose of vitamin K in the emergency department. I discussed with his niece the pros and cons of continued anticoagulation, quoting a 6% risk of stroke per year off Coumadin versus a 3% risk per year on Coumadin, and she elects to take the patient off Coumadin as his patient advocate. I tend to agree, given how severe his dementia is and his poor quality of life at this point, so we will stop his Coumadin and replace it with aspirin daily once his INR is under 2. He has obstructive sleep apnea. He is not able to advocate for his own equipment and if he is here on Wednesday I am going to see if we can contact [facility] and get his equipment replaced. He has senile dementia as I mentioned above, which may limit his ability to participate in physical therapy, but his niece would like to try pursuing readmission at [facility] for rehab if he qualifies. We will get PT and OT to evaluate and treat the patient and care management's assistance in placement. Further treatment and recommendations will depend on his hospital course. VTE risk is moderate and he is excessively anticoagulated on Coumadin at this point. When his INR is under 2, we will consider Lovenox therapy. CODE STATUS: I did review the patient's POLST form and his code status is do not resuscitate/do not intubate, with limited additional interventions. cc: Dr. Vikram Hernandez
[2016-10-31] MEDS ORDERED: FUROSEMIDE 40 MG TABLET PO SCH (21:00)
[2016-10-31] MEDS: METOPROLOL TARTRATE 25 MG TABLET PO SCH (21:33)
[2016-10-31] MEDS: POTASSIUM CHLORIDE 20 MEQ TAB.PRT.SR PO SCH (21:33)
[2016-10-31] MEDS: DOCUSATE SODIUM 100 MG CAPSULE PO SCH (21:33)
[2016-10-31] MEDS: PRAVASTATIN SODIUM 20 MG TABLET PO SCH (21:34)
[2016-10-31] MEDS: ACETAMINOPHEN 325 MG TABLET PO PRN (21:34)
[2016-11-01 06:13] LABS: BASO % 0.3 % (0.2-1.0); EOS # 0.1 (0.0-0.5); HEMATOCRIT 42.7 % (32.0-52.0); HEMOGLOBIN 13.9 gm/l (14.0-18.0); IMM NEUT% 0.4 % (0-1); LYMPH # 1.3 (1.0-4.8); MEAN CELL VOLUME 96.8 fl (80.0-94.0); MEAN CORPUSCULAR HEMOGLOBIN 31.5 pg (27.0-31.0); MEAN CORPUSCULAR HGB CONC 32.6 g/dl (33.0-37.0); MEAN PLATELET VOLUME 11.1 fl (7.4-10.4); MONO # 1.4 (0.0-0.8); MONO % 12.8 % (4-12); NEUT % 73.5 % (43-75); PLATELET COUNT 269 K/mm3 (130-400); RED CELL DISTRIBUTION WIDTH 13.4 % (11.5-14.5)
[2016-11-01 06:24] LABS: INR 1.96; PROTHROMBIN TIME 21.3 SECONDS (9.3-11.4)
[2016-11-01 06:28] LABS: CALCIUM 9.6 mg/dL (8.6-10.3)
[2016-11-01] MEDS: AMLODIPINE BESYLATE 5 MG TABLET PO SCH (08:54)
[2016-11-01] MEDS: EZETIMIBE 10 MG TABLET PO SCH (08:54)
[2016-11-01] MEDS: METOPROLOL TARTRATE 25 MG TABLET PO SCH ×2 (08:54→20:09)
[2016-11-01] MEDS: PANTOPRAZOLE 40 MG TABLET DR PO SCH (08:55)
[2016-11-01] MEDS: LOSARTAN POTASSIUM 50 MG TABLET PO SCH (08:55)
[2016-11-01] MEDS: DOCUSATE SODIUM 100 MG CAPSULE PO SCH ×2 (08:55→20:09)
[2016-11-01] MEDS: ALLOPURINOL 300 MG TABLET PO SCH (08:55)
[2016-11-01] MEDS: VENLAFAXINE HCL XR 150 MG CAPSULE.DR PO SCH (10:00)
--- NOTE | 2016-11-01 10:11 | PDOC43 ---
- Subjective Chief Complaint: RLL pneumonia Patient reports not eating much today, no specific complaints. Some cough. Hasn' t worked with PT/OT yet. - Objective Vital Signs Temperature 98.9 F 11/01/16 07:19 Pulse Rate 70 11/01/16 07:19 Respiratory Rate 18 11/01/16 07:19 Blood Pressure 123/68 11/01/16 07:19 O2 Saturation by Pulse Oximetry 95 11/01/16 07:19 Oxygen Delivery Method Nasal Cannula Oxygen Flow Rate 2 Vital Signs Last 12 Hours Temp Pulse Resp BP Pulse Ox 11/01/16 07:19 98.9 F 70 18 123/68 95 11/01/16 04:00 98.0 F 72 20 123/59 96 11/01/16 01:00 18 10/31/16 23:53 98.0 F 70 18 133/83 93 Intake and Output 10/30/16 10/31/16 11/01/16 23:59 23:59 23:59 Intake Total 450 750 Output Total 350 532 Balance 100 218 General: Other (awake, answers some.) Lungs: Other (wet sounding cough, Some R sided noises, but air movement seems ok bilat. NC on.) Cardiovascular: Regular Rate and Rhythm (paced.) Abdomen: Soft, Normal Bowel Sounds, Non-Distended, No Tenderness Extremities: Other (SCDs on), No Edema Skin: Normal Color Neurological: Other (slow speech, answers.) Psych/Mental Status: Other (sl flat affect.) Laboratory 11/01/16 05:30 11/01/16 05:30 11/01/16 05:30 RBC 4.41 L MCV 96.8 H MCH 31.5 H MCHC 32.6 L PT 21.3 H BUN 34 H Estimated GFR 45 L Current Medications: Current meds reviewed in EMR. Active Medications Acetaminophen (Tylenol) 650 mg PO Q6H PRN PRN Reason: Pain or Temperature > 100.5 F Last Admin: 10/31/16 21:34 Dose: 650 mg Albuterol Sulfate (Ventolin Inhalation Solution (Dose)) 2.5 mg NEB Q4H PRN PRN Reason: Wheezing Allopurinol (Zyloprim) 150 mg PO DAILY [facility] Last Admin: 11/01/16 08:55 Dose: 150 mg Amlodipine Besylate (Norvasc) 2.5 mg PO QAM [facility] Last Admin: 11/01/16 08:54 Dose: 2.5 mg Benzocaine/Menthol (Cepacol) 1 each PO PRN PRN PRN Reason: Sore Throat Bisacodyl (Dulcolax) 10 mg MA DAILY PRN PRN Reason: Constipation Bisacodyl (Dulcolax) 5 mg PO DAILY PRN PRN Reason: Constipation Docusate Sodium (Colace) 100 mg PO BID [facility] Last Admin: 11/01/16 08:55 Dose: 100 mg Ezetimibe (Zetia) 10 mg PO DAILY [facility] Last Admin: 11/01/16 08:54 Dose: 10 mg Furosemide (Lasix) 80 mg PO [id number] [facility] Last Admin: 10/31/16 19:22 Dose: 80 mg Azithromycin 500 mg/ Sodium (Chloride) 250 mls @ 250 mls/hr IV Q24H [facility] Stop: 11/02/16 15:59 Last Admin: 10/31/16 16:00 Dose: 250 mls/hr Ceftriaxone Sodium/Dextrose 1 (g/ Premix (D5W) 50 ml) 50 mls @ 100 mls/hr IV Q24H [facility] Sodium Chloride (Sodium Chloride 0.9%) 100 mls @ 25 mls/hr IV PRN PRN PRN Reason: Flush Losartan Potassium (Cozaar) 25 mg PO DAILY [facility] Last Admin: 11/01/16 08:55 Dose: 25 mg Magnesium Hydroxide (Milk Of Magnesia) 30 ml PO DAILY PRN PRN Reason: Constipation Metoprolol Tartrate (Lopressor) 50 mg PO BID [facility] Last Admin: 11/01/16 08:54 Dose: 50 mg Pantoprazole Sodium (Protonix) 40 mg PO DAILY [facility] Last Admin: 11/01/16 08:55 Dose: 40 mg Petrolatum/Paraffin/Mineral Oil (Blistex) 1 each TP PRN PRN PRN Reason: Dry and/or chapped lips Potassium Chloride (K-Dur) 40 meq PO BID [facility] Last Admin: 10/31/16 21:33 Dose: 40 meq Pravastatin Sodium (Pravachol) 40 mg PO BEDTIME [facility] Last Admin: 10/31/16 21:34 Dose: 40 mg Sodium Chloride (Normal Saline 10ml Flush) 10 - 50 ml IV PRN PRN PRN Reason: IV Flush Sodium Chloride (Normal Saline 10ml Flush) 10 ml IV Q8HR [facility] Last Admin: 11/01/16 08:55 Dose: 10 ml Venlafaxine HCl (Effexor Xr) 150 mg PO DAILY [facility] - Problems: Assessment/Plan (1) RLL pneumonia Qualifiers: Pneumonia type: due to unspecified organism Qualifier Code: (J18.1) Lobar pneumonia, unspecified organism Status: AcuteAssessment/Plan: Presumed bacterial, organism not identified yet. With sepsis Rocephin, Zithromax started 10/31 Cultures pending with hypoxia, on 2 L O2. (2) SHARAD (acute kidney injury) Status: AcuteAssessment/Plan: Associated with sepsis. Improved with IV hydration. Continue to monitor. (3) Hypertension Qualifiers: Hypertension type: essential hypertension Qualifier Code: (I10) Essential (primary) hypertension Status: AcuteAssessment/Plan: On Lasix, losartan, metoprolol BP control good. (4) Dementia Qualifiers: Dementia type: unspecified type Dementia behavioral disturbance: without behavioral disturbance Qualifier Code: (F03.90) Unspecified dementia without behavioral disturbance Status: ChronicAssessment/Plan: Concern for placement (5) Afib Qualifiers: Atrial fibrillation type: chronic Qualifier Code: (I48.2) Chronic atrial fibrillation Status: ChronicAssessment/Plan: anticoagulated, but now stopping due to risk/benefit being low (6) Coagulopathy Status: AcuteAssessment/Plan: Due to effect of usual dose coumadin in pt who is sick and not taking usual diet. Given Vit K, and warfarin now stopped for good. VTE Prophylaxis: Consider for lovenox tomorrow as INR declines after Vitamin K Disposition: Return to SNF vs other, appreciate PT/OT eval.
[2016-11-01] MEDS: ACETAMINOPHEN 325 MG TABLET PO PRN ×2 (12:09→20:09)
[2016-11-01] MEDS: CEFTRIAXONE 1 GRAM DUPLEX 1 G in Premix (D5W) 50 ml 1 EACH IV SCH (12:49)
[2016-11-01] MEDS: AZITHROMYCIN 500 MG in SODIUM CHLORIDE 0.9% 250 ML IV SCH (14:24)
[2016-11-01] MEDS: PRAVASTATIN SODIUM 20 MG TABLET PO SCH (20:10)
[2016-11-02] MEDS: ACETAMINOPHEN 325 MG TABLET PO PRN ×2 (02:26→11:11)
[2016-11-02 06:04] LABS: ABSOLUTE NEUTROPHIL COUNT 7.3 K/mm3 (1.8-7.7); BASO % 0.4 % (0.2-1.0); EOS # 0.1 (0.0-0.5); EOS % 1.4 % (0.9-2.9); HEMATOCRIT 42.9 % (32.0-52.0); HEMOGLOBIN 13.9 gm/l (14.0-18.0); IMM NEUT # 0.1 K/mm3 (0-0.2); IMM NEUT% 0.7 % (0-1); LYMPH # 1.3 (1.0-4.8); MEAN CELL VOLUME 97.3 fl (80.0-94.0); MEAN CORPUSCULAR HEMOGLOBIN 31.5 pg (27.0-31.0); MEAN CORPUSCULAR HGB CONC 32.4 g/dl (33.0-37.0); MEAN PLATELET VOLUME 10.2 fl (7.4-10.4); MONO # 1.2 (0.0-0.8); MONO % 11.8 % (4-12); NEUT % 72.7 % (43-75); PLATELET COUNT 290 K/mm3 (130-400); RED CELL DISTRIBUTION WIDTH 13.3 % (11.5-14.5)
[2016-11-02 06:10] LABS: ALB/GLOB RATIO 0.6 (>1.0); ALBUMIN 2.7 gm/dL (3.5-5.7); CALCIUM 9.2 mg/dL (8.6-10.3)
[2016-11-02 06:15] LABS: INR 1.26; PROTHROMBIN TIME 13.4 SECONDS (9.3-11.4)
[2016-11-02] MEDS: METOPROLOL TARTRATE 25 MG TABLET PO SCH (08:30)
[2016-11-02] MEDS: AMLODIPINE BESYLATE 5 MG TABLET PO SCH (08:31)
[2016-11-02] MEDS: ALLOPURINOL 300 MG TABLET PO SCH (08:32)
[2016-11-02] MEDS: LOSARTAN POTASSIUM 50 MG TABLET PO SCH (08:32)
[2016-11-02] MEDS: PANTOPRAZOLE 40 MG TABLET DR PO SCH (08:33)
[2016-11-02] MEDS: DOCUSATE SODIUM 100 MG CAPSULE PO SCH (08:33)
[2016-11-02] MEDS: EZETIMIBE 10 MG TABLET PO SCH (08:33)
[2016-11-02] MEDS: VENLAFAXINE HCL XR 150 MG CAPSULE.DR PO SCH (08:36)
--- NOTE | 2016-11-02 08:45 | PDOC43 ---
- Subjective Chief Complaint: RLL pneumonia Patient reports he is doing ok, but he "isn't an oatmeal person." He asks if he could roll over and would like to sit up. Breathing ok, no pains. - Objective Vital Signs Temperature 97.5 F 11/02/16 07:10 Pulse Rate 70 11/02/16 07:19 Respiratory Rate 20 11/02/16 07:25 Blood Pressure 147/85 11/02/16 07:10 O2 Saturation by Pulse Oximetry 93 11/02/16 07:19 Oxygen Delivery Method Room Air Oxygen Flow Rate 0 Vital Signs Last 12 Hours Temp Pulse Resp BP Pulse Ox 11/02/16 07:25 20 11/02/16 07:19 70 93 11/02/16 07:10 97.5 F 70 22 147/85 97 11/02/16 04:00 99 F 82 20 147/89 94 11/02/16 02:43 20 11/02/16 00:00 97.8 F 70 20 126/76 95 11/01/16 21:25 20 Intake and Output 10/31/16 11/01/16 11/02/16 23:59 23:59 23:59 Intake Total 450 2135 800 Output Total 350 1448 650 Balance 100 687 150 General: Alert, Cooperative, No Acute Distress HEENT: Atraumatic Lungs: Clear to Auscultation Bilaterally, Normal Air Movement Cardiovascular: Regular Rate and Rhythm (paced) Abdomen: Soft, Normal Bowel Sounds, Non-Distended Extremities: No Edema Skin: Normal Color Neurological: Normal Speech Psych/Mental Status: Normal Affect Laboratory 11/02/16 05:20 11/02/16 05:20 11/02/16 05:20 RBC 4.41 L MCV 97.3 H MCH 31.5 H MCHC 32.4 L PT 13.4 H BUN 27 H Estimated GFR 58 L Total Bilirubin 1.2 H Alkaline Phosphatase 166 H Albumin 2.7 L Globulin 4.4 H Albumin/Globulin Ratio 0.6 L Current Medications: Current meds reviewed in EMR. Active Medications Acetaminophen (Tylenol) 650 mg PO Q6H PRN PRN Reason: Pain or Temperature > 100.5 F Last Admin: 11/02/16 02:26 Dose: 650 mg Albuterol Sulfate (Ventolin Inhalation Solution (Dose)) 2.5 mg NEB Q4H PRN PRN Reason: Wheezing Allopurinol (Zyloprim) 150 mg PO DAILY [facility] Last Admin: 11/02/16 08:32 Dose: 150 mg Amlodipine Besylate (Norvasc) 2.5 mg PO QAM [facility] Last Admin: 11/02/16 08:31 Dose: 2.5 mg Benzocaine/Menthol (Cepacol) 1 each PO PRN PRN PRN Reason: Sore Throat Bisacodyl (Dulcolax) 10 mg CO DAILY PRN PRN Reason: Constipation Bisacodyl (Dulcolax) 5 mg PO DAILY PRN PRN Reason: Constipation Docusate Sodium (Colace) 100 mg PO BID [facility] Last Admin: 11/02/16 08:33 Dose: 100 mg Ezetimibe (Zetia) 10 mg PO DAILY [facility] Last Admin: 11/02/16 08:33 Dose: 10 mg Furosemide (Lasix) 80 mg PO [id number] [facility] Last Admin: 10/31/16 19:22 Dose: 80 mg Azithromycin 500 mg/ Sodium (Chloride) 250 mls @ 250 mls/hr IV Q24H [facility] Stop: 11/02/16 15:59 Last Admin: 11/01/16 14:24 Dose: 250 mls/hr Ceftriaxone Sodium/Dextrose 1 (g/ Premix (D5W) 50 ml) 50 mls @ 100 mls/hr IV Q24H [facility] Last Admin: 11/01/16 12:49 Dose: 100 mls/hr Sodium Chloride (Sodium Chloride 0.9%) 100 mls @ 25 mls/hr IV PRN PRN PRN Reason: Flush Last Admin: 11/01/16 14:24 Dose: 25 mls/hr Losartan Potassium (Cozaar) 25 mg PO DAILY [facility] Last Admin: 11/02/16 08:32 Dose: 25 mg Magnesium Hydroxide (Milk Of Magnesia) 30 ml PO DAILY PRN PRN Reason: Constipation Metoprolol Tartrate (Lopressor) 50 mg PO BID [facility] Last Admin: 11/02/16 08:30 Dose: 50 mg Pantoprazole Sodium (Protonix) 40 mg PO DAILY [facility] Last Admin: 11/02/16 08:33 Dose: 40 mg Petrolatum/Paraffin/Mineral Oil (Blistex) 1 each TP PRN PRN PRN Reason: Dry and/or chapped lips Potassium Chloride (K-Dur) 40 meq PO BID [facility] Last Admin: 10/31/16 21:33 Dose: 40 meq Pravastatin Sodium (Pravachol) 40 mg PO BEDTIME [facility] Last Admin: 11/01/16 20:10 Dose: 40 mg Sodium Chloride (Normal Saline 10ml Flush) 10 - 50 ml IV PRN PRN PRN Reason: IV Flush Last Admin: 11/01/16 12:49 Dose: 10 ml Sodium Chloride (Normal Saline 10ml Flush) 10 ml IV Q8HR [facility] Last Admin: 11/02/16 08:34 Dose: 10 ml Venlafaxine HCl (Effexor Xr) 150 mg PO DAILY [facility] Last Admin: 11/02/16 08:36 Dose: 150 mg - Problems: Assessment/Plan (1) RLL pneumonia Qualifiers: Pneumonia type: due to unspecified organism Qualifier Code: (J18.1) Lobar pneumonia, unspecified organism Status: AcuteAssessment/Plan: Presumed bacterial, organism not identified yet; blood cultures negative so far. With sepsis Rocephin, Zithromax started 10/31 Hypoxia now resolved, satting well on RA Consider for DC to SNF (2) SHARAD (acute kidney injury) Status: ResolvedAssessment/Plan: Associated with sepsis. Resolved with IV hydration, Cr 1.2 now at baseline. (3) Hypertension Qualifiers: Hypertension type: essential hypertension Qualifier Code: (I10) Essential (primary) hypertension Status: ChronicAssessment/Plan: On Lasix, losartan, metoprolol BP control near goal, stable. (4) Dementia Qualifiers: Dementia type: unspecified type Dementia behavioral disturbance: without behavioral disturbance Qualifier Code: (F03.90) Unspecified dementia without behavioral disturbance Status: ChronicAssessment/Plan: Concern for placement (5) Afib Qualifiers: Atrial fibrillation type: chronic Qualifier Code: (I48.2) Chronic atrial fibrillation Status: ChronicAssessment/Plan: anticoagulated, but now stopping due to risk/benefit being low (6) Coagulopathy Status: AcuteAssessment/Plan: Due to effect of usual dose coumadin in pt who is sick and not taking usual diet. INR now 1.26. Given Vit K, and warfarin now stopped for good. VTE Prophylaxis: Consider for lovenox as pt was given Vitamin K Disposition: anticipate DC to SNF, appreciate PT/OT eval.
[2016-11-02] MEDS: FUROSEMIDE 40 MG TABLET PO SCH (09:02)
[2016-11-02] MEDS: POTASSIUM CHLORIDE 20 MEQ TAB.PRT.SR PO SCH (09:02)
[2016-11-02] MEDS ORDERED: FUROSEMIDE 80 MG TABLET PO SCH (09:20)
[2016-11-02 11:25] VITALS: BP 126/72
--- NOTE | 2016-11-02 12:06 | DS ---
NADIA PEÑA [id number] DATE OF ADMISSION: October 31, 2016 DATE OF DISCHARGE: November 02, 2016 DISCHARGE DIAGNOSES: Are: 1. Community acquired right lower lobe pneumonia, presumed bacterial, organism not identified but with good clinical response to antibiotic therapy. 2. Acute kidney injury associated with sepsis. Resolved with IV hydration, back at baseline of creatinine 1.2. 3. Hypertension, stable. 4. Dementia. 5. Atrial fibrillation. Initially under anticoagulation but with marked over anticoagulation on admission and low risk/benefit ratio. Patient's Coumadin has been discontinued. 6. Systolic congestive heart failure, stable. REASON FOR ADMISSION: The patient is an 81-year-old male with moderate to severe dementia with systolic congestive heart failure brought to the [facility] Emergency Department from [facility]. He was noted to have an oxygen saturation 90% on room air and an x-ray evidence of right basilar pneumonia. He has also had several other issues including a recent hospitalization for hematemesis and chronic systolic heart failure with ejection fraction on echocardiogram of 30% in February of 2015, obstructive sleep apnea. On admission, patient's labs showed a white blood cell count of 12.2, hemoglobin 14.8, his INR was greater than 10, lactate 1.1, chemistry profile with sodium 138, potassium 3.6, creatinine 1.2, glucose 130, bilirubin 1.4, AST 45, ALT 47, alkaline phosphatase 169, CK 29, CK-MB 2.6, troponin 0.03, BNP 407, albumin 2.9, globulin 4.2. Urinalysis was unremarkable. His chest x-ray had shown a right basilar opacity, atelectasis versus pneumonia. Patient was given Lasix as well as Rocephin and azithromycin and demonstrated good improvement. He remained afebrile during the hospitalization and his blood pressure remained stable. He had improvement in oxygen saturation. He was 93% on room air the morning of November 02, 2016. Temperature 97.5, pulse 70, blood pressure 145/85, respirations 20. His followup labs showed a creatinine of 1.2 which is improved from the 1.5 on November 01, 2016. His other labs remained stable. He appeared to be approaching baseline status and so is anticipated to be discharged to [facility]. He will be having daily weights. DISPOSITION: [facility]. DISCHARGE MEDICATIONS: So she will be on: 1. Acetaminophen 650 mg orally every four hours as needed. 2. Allopurinol 150 mg orally daily. 3. Amlodipine 2.5 mg orally in the morning. 4. Aspirin 325 mg daily. 5. Azithromycin 250 mg orally daily times three more days. 6. Ceftin 500 mg orally twice daily times ten more days. 7. Docusate sodium 100 mg orally twice daily. 8. Zetia 10 mg orally daily. 9. Lasix 80 mg orally twice daily. 10. Losartan 25 mg orally daily. 11. Metoprolol 50 mg orally twice daily. 12. Lovaza 2000 mg orally twice daily. 13. Omeprazole 20 mg orally daily. 14. Potassium chloride 40 mEq twice daily. 15. Pravastatin 40 mg orally at bedtime. 16. Sucralfate 1 g orally at meals and at bedtime. 17. Venlafaxine 150 mg orally daily. ACTIVITY: Will be as tolerated. FOLLOW UP: Follow up is requested with Dr. Kohli. INSTRUCTIONS: His warfarin has been discontinued due to previous hematemesis and ongoing difficulty managing with feeling of excessive risk compared to benefit at this time. CONDITION ON DISCHARGE: Is improved. Cc: Иван Kohli M.D.
[2016-11-02] MEDS ORDERED: PUMP TUBING ONE (13:59)
[2016-11-02] MEDS: CEFTRIAXONE 1 GRAM DUPLEX 1 G in Premix (D5W) 50 ml 1 EACH IV SCH (14:05)
== END 2016-11-02 15:25 | DRG 871 ==
LOC: ED 10:38 → MS 12:55
PROVIDERS: ADMIT Family Medicine; ATTEND Internal Medicine
DX: A41.9 Sepsis, unspecified organism (principal); J15.9 Unspecified bacterial pneumonia; N17.9 Acute kidney failure, unspecified; I13.0 Hypertensive heart and chronic kidney disease with heart failure and stage 1 through stage 4 chronic kidney disease, or unspecified chronic kidney disease; I50.22 Chronic systolic (congestive) heart failure; I48.91 Unspecified atrial fibrillation; Z79.01 Long term (current) use of anticoagulants; F03.90 Unspecified dementia, unspecified severity, without behavioral disturbance, psychotic disturbance, mood disturbance, and anxiety; E78.5 Hyperlipidemia, unspecified; M10.9 Gout, unspecified; N18.3 Chronic kidney disease, stage 3 (moderate)